=== PATIENT | female | born 1965 | race Native Hawaiian/Other Pacific Islander ===

== ENCOUNTER → 2021-01-31 | Outpatient (CLI) | payer BC, OTHER | LOC: INF 08:41 | PROVIDERS: ATTEND Internal Medicine | DX: Z23 Encounter for immunization (principal) | CPT/HCPCS: 96372 ==

== ENCOUNTER 2021-02-24 08:44 | Outpatient (CLI) | payer BC, OTHER | END 2021-02-24 23:59 | disposition home or self-care (01) | LOC: INF 08:44 | PROVIDERS: ATTEND Internal Medicine | DX: Z23 Encounter for immunization (principal) | CPT/HCPCS: 96372 ==